=== PATIENT | female | born 1935 | race Caucasian/White ===

== ENCOUNTER → 2016-07-01 | Outpatient (CLI) | payer MEDICARE, OTHER ==
[~2016-07-01] MED LIST: AMBIEN10 MG PO; AMBIEN5 MG PO; AMPICILLIN500 MG PO; ASPIRIN LO-DOSE81 MG PO; ATIVAN 1 MG1 MG PO; COREG12.5 MG PO; CYMBALTA60 MG PO; DULCOLAX STOOL100 MG PO; DURAGESIC 50MC50 MCG TOP; DURAGESIC 50MC50 MCG TRANS; DURAGESIC 75MC75 MCG TRANS; LAMICTAL25 MG PO; MELATONIN3 MG PO; MIRALAX17 GM PO; MIRTAZAPINE45 MG PO; NEXIUM40 MG PO; NORCO 5-325 MG1 TAB PO; PREMARIN0.625 MG PO; TAPAZOLE5 MG PO; ULTRAM50 MG PO; ZYLOPRIM300 MG PO
== END | disposition disaster alternative care site (69) ==
LOC: GAMB 06:50
DX: M54.9 Dorsalgia, unspecified (principal); I10 Essential (primary) hypertension; Z79.899 Other long term (current) drug therapy; Z79.82 Long term (current) use of aspirin; Z88.8 Allergy status to other drugs, medicaments and biological substances; Z95.0 Presence of cardiac pacemaker
CPT/HCPCS: A0422; A0425; A0429